=== PATIENT | male | born 1955 | race Caucasian/White ===

== ENCOUNTER → 2023-10-01 18:00 | Outpatient (REF) | payer MEDICARE, BC, SELFPAY ==
--- NOTE | 2023-09-21 08:35 | PN.DIAED02 ---
Referral
DSME Class Series Code: [id number]
Referred For: Diabetes Self-Management Training
PHI Release Authorization Form Signed: Yes
Demographic
(1) Type 2 diabetes mellitus
Status: Acute Code(s): E11.9 - Type 2 diabetes mellitus without complications
Patient's primary language-: Japanese
Education: College degree
Occupation: Professional (financial services consultant)
Hours Worked/Week: 20-40 (35)
- Social
Primary Support Person: Family
Primary Care Takers: Self
Living Arrangements: Family
- Learning Methods
Preferred Method: Lecture/audio, Hands-on demonstration, Video, Group discussion
Barriers to Learning: None
Glycemic Control
- Blood Glucose Monitoring Assessment
Date: 09/20/23
Blood glucose monitoring at home: No (Provided with [employer] Next Gen)
Monitor Brands: [employer] (Next Gen)
Frequency: 2x per day
Time: fasting, after breakfast, after lunch, after dinner
- Hemoglobin A1c
Date: 09/07/23
A1C Percentage (%): 7.3
Medical History of Diabetes
Previous Diabetes Education: No
Previous visit with Dietitian: No
Complications/Comorbidity/Specialist: Hypertension, Other / symptoms (Back issues from laminectomy and fusion)
Measures
- Anthropometrics
Height: 5 ft 7 in
Actual Weight: 217 lb 6 oz
- Blood Pressure / Pulse
Blood pressure: 159/81
- Diabetes Management
Medical Management for Diabetes: Complete physical exam (09/07/23), Dental exam (07/24/23), Dilated eye exam (06/27/23), Pneumonia vaccination (11/14/22), Other (covid-19 vaccine-09/14/23)
Self-Care
- Tobacco Usage
Do you now, or have you ever smoked?: Never smoked
- Alcohol & Drugs Usage
Drinks Alcohol: Yes
Amount/day: Other (1/month)
- Meals & Dining
Meals & Dining: Patient skips meals: No, Food Intolerance / Allergy: No, Cultural / Adventism Dietary Needs: No
Primary Food Steel Floor Pan Placing Supervisor: Self
Primary Court Orderly: Self
Dining Out Frequency: 1-3x per week (1)
- Physical Activity
Physical Limitation: Yes (back pain)
Patient participates in physical Activity: Yes
Activity Types: walking (just started using treadmill)
Duration: 21-30 minutes
Frequency: 3-5x per week (3)
Intensity: Easy
- Patient-Self Assessment
Diabetes Knowledge: Fair
Feelings About Diabetes: Adaptation
General Health: Good
Importance of Health: Extremely
Stress Level: High
Diabetes Interferes With:: Nothing
Depression Survey Score: 0
Care Plan
- Education Needs
Patient Education Needs: Diabetes disease process, Chronic complications, Acute complications, Medication, Monitoring, Physical activity, Psychosocial Adjustment, Nutritional management, Goal setting & problem solving
Recommended Diabetes Training Program based on assessment: Outpatient Diabetes Education Program
- Plan of Care
Plan of Care:
Shane recently diagnosed with T2DM, A1C 7.3%. He does recall his FBS being elevated in the past. He has been unable to reach insurance for a preferred glucometer. Provided with and instructions given on [facility] Next Gen. He is aware to continue
calling insurance to be certain they will pay for test strips and lancets. If the Contour is preferred, he will call his PCP for an RX for supplies, if not preferred, get an RX for that glucometer and supplies. Good return demonstration with result
137 mg/dl. Aware of testing technique, sites and expected results (as described in handout). He has made some dietary changes and started using the treadmill and has lost 9# in approx. 3 weeks. Handout on snack options provided. Goals established
and directions to classroom given. His is planning to attend as support. Shane knows that he will miss Class 3 (10/15/23), date given for make up class in the next session (11/16/23).
--- NOTE | 2023-09-21 08:51 | PN.DIAED04 ---
Education Record
- Education Record
Class Attended: Class 1 (pre registration 09/20/23 for outpt DSME classes starting 10/01/23)
DSME Class Series Code: [id number]
Instructor: Registered Nurse (Azul Licona, RN, BSN, [facility])
Class Curriculum:
Outpatient Diabetes Education Program:
Initial Assessment (45 minutes)
Individualized assessment
Develop personal strategies to promote health and behavior change
Development of diabetes self-management support plan
Class Length (mins): 45
Pre-Program Knowledge: Needs review / Assistance
Pre-Test Score (%): 70
Goals
- Goal 1
Being Active: Exercise more often (Goal is to use treadmill (walk outside in good weather) and add some light weights 3-4 times/week)
Goals To Be Evaluated: Exercise more often
- Goal 2
Healthy Eating: Make better food choices, Reduce portion sizes
Goals To Be Evaluated: Make better food choices. Reduce portion sizes
- Goal 3
Monitoring: Take blood sugar in the prescribed pattern
Goals To Be Evaluated: Test BG-prescribed times
--- NOTE | 2023-10-02 13:35 | PN.DIAED04 ---
Education Record
- Education Record
Class Attended: Class 1
DSME Class Series Code: [id number]
Instructor: Registered Nurse (Azul Licona, RN, BSN, CDE)
Class Length (mins): 120
Post-Class 1 Test Score (%): 100
--- NOTE | 2023-10-02 13:37 | PN.DIAED14 ---
This is to notify you that your patient with diabetes, ISAAK SOTO ( 1955), has enrolled in our diabetes self-management classes that are being held at [facility].
These classes will include an introduction to diabetes, diet, medication, exercise and prevention of complications. At the end of our class series, you will receive a report of your patient's participation and progress for your records.
Please contact me at the Diabetes Center, , if there is any particular information regarding your patient that might be helpful to me.
Sincerely,
--- NOTE | 2023-10-08 14:12 | PN.DIAED06 ---
Meal Plans - Regular
- Meal Plan
Diabetic Meal Plan Name: 1800 calories
Breakfast - Total Carbohydrate (grams): 45
Breakfast - Starch Carbohydrate: 0
Breakfast - Fruit Carbohydrate: 0
Breakfast - Milk Carbohydrate: 0
Breakfast - Nonstarchy Vegetables: Yes
Breakfast - Meat/Protein: 1
Breakfast - Fat: 2
Morning Snack - Total Carbohydrate (grams): 15
Morning Snack - Starch Carbohydrate: 0
Morning Snack - Fruit Carbohydrate: 0
Morning Snack - Milk Carbohydrate: 0
Morning Snack - Nonstarchy Vegetables: Yes
Morning Snack - Meat/Protein: 0.5
Morning Snack - Fat: 0
Lunch - Total Carbohydrate (grams): 45
Lunch - Starch Carbohydrate: 0
Lunch - Fruit Carbohydrate: 0
Lunch - Milk Carbohydrate: 0
Lunch - Nonstarchy Vegetables: Yes
Lunch - Meat/Protein: 3
Lunch - Fat: 1
Afternoon Snack - Total Carbohydrate (grams): 15
Afternoon Snack - Starch Carbohydrate: 0
Afternoon Snack - Fruit Carbohydrate: 0
Afternoon Snack - Milk Carbohydrate: 0
Afternoon Snack - Nonstarchy Vegetables: Yes
Afternoon Snack - Meat/Protein: 0.5
Afternoon Snack - Fat: 0
Dinner - Total Carbohydrate (grams): 45
Dinner - Starch Carbohydrate: 0
Dinner - Fruit Carbohydrate: 0
Dinner - Milk Carbohydrate: 0
Dinner - Nonstarchy Vegetables: Yes
Dinner - Meat/Protein: 3
Dinner - Fat: 2
Evening Snack - Total Carbohydrate (grams): 15
Evening Snack - Starch Carbohydrate: 0
Evening Snack - Fruit Carbohydrate: 0
Evening Snack - Milk Carbohydrate: 0
Evening Snack - Nonstarchy Vegetables: Yes
Evening Snack - Meat/Protein: 0
Evening Snack - Fat: 0
== END ==
LOC: DES 18:00
PROVIDERS: ATTENDING PHYSICIAN Student in an Organized Health Care Education/Training Program
DX: E11.9 Type 2 diabetes mellitus without complications (principal)
CPT/HCPCS: 99078

== ENCOUNTER → 2023-10-08 18:00 | Outpatient (REF) | payer MEDICARE, BC, SELFPAY ==
--- NOTE | 2023-10-09 08:42 | PN.DIAED04 ---
Education Record
- Education Record
Class Attended: Class 2
DSME Class Series Code: [id number]
Instructor: Registered Dietitian (Geri Jimenez, RD, LDN, CDE)
Class Length (mins): 120
== END ==
LOC: DES 18:00
PROVIDERS: ATTENDING PHYSICIAN Student in an Organized Health Care Education/Training Program
DX: E11.9 Type 2 diabetes mellitus without complications (principal)
CPT/HCPCS: 99078

== ENCOUNTER → 2023-10-29 18:00 | Outpatient (REF) | payer MEDICARE, BC, SELFPAY ==
--- NOTE | 2023-10-31 10:57 | PN.DIAED20 ---
This is to notify you that your patient with diabetes, ISAAK SOTO ( 1955), has attended the following Diabetes Self-Management Education Classes.
_X_ Class 1 (120 minutes): Diabetes Overview - monitoring, stress/psychosocial adjustment, support, goal setting
_X_ Class 2 (120 minutes): Meal Planning - serving sizes, menu plans
___ Class 3 (120 minutes): Introduction to Carbohydrate Counting, Analyzing Food Labels
___ Class 4 (120 minutes): Medication, Exercise and Activity
_X_ Class 5 (120 minutes): Sick Day Management, Strategies to Reduce Complications, Problem Solving, Resources
The following behavioral goals were identified:
Exercise more often
Make better food choices
Reduce portion sizes
Test BG-prescribed times
A follow-up call will be made within three to six months to evaluate attainment of these goals and to check post-program Hemoglobin A1c and overall progress. All class participants are encouraged to contact me if I can be any further assistance in
learning how to manage their diabetes.
Sincerely,
--- NOTE | 2023-11-01 12:20 | PN.DIAED04 ---
Education Record
- Education Record
Class Attended: Class 5
DSME Class Series Code: [id number]
Instructor: Registered Nurse (Azul Licona, RN, BSN, [facility])
Class Curriculum:
Outpatient Diabetes Education Program:
Class 5 (120 minutes)
Prevent, detect, and treat acute complications
Prevent, detect, and treat chronic complications through risk reduction
Develop personal strategies to address psychosocial issues and concerns
Development of diabetes self-management support plan
Letter to physician with DSMS plan attached sent
Class Length (mins): 120
Post-Program Knowledge: Demonstrates competency
Post-Test Score (%): 83
Post-Program Assessment
- Post-Program Assessment
Actual Weight: 211 lb
Blood pressure: 186/95 (checks BP daily at home with reading 113/64, 117/62.He will check when he goes home and f/u if needed)
Post-Program Depression Survey Score: 0
Reviewing Previous Goals?: Yes
Pre-Program Depression Survey Score: 0
- Goals 1 Evaluation
Goals To Be Evaluated: Exercise more often
- Goals 2 Evaluation
Goals To Be Evaluated: Make better food choices. Reduce portion sizes
- Goals 3 Evaluation
Goals To Be Evaluated: Test BG-prescribed times
== END ==
LOC: DES 18:00
PROVIDERS: ATTENDING PHYSICIAN Student in an Organized Health Care Education/Training Program
DX: E11.9 Type 2 diabetes mellitus without complications (principal)
CPT/HCPCS: 99078

== ENCOUNTER → 2024-02-15 06:31 | Day surgery (SDC) | payer MEDICARE, BC, SELFPAY | LOC: GI 06:31 | PROVIDERS: ATTENDING PHYSICIAN Internal Medicine Gastroenterology | DX: Z12.11 Encounter for screening for malignant neoplasm of colon (principal); D12.0 Benign neoplasm of cecum; D12.4 Benign neoplasm of descending colon; K57.30 Diverticulosis of large intestine without perforation or abscess without bleeding; K64.8 Other hemorrhoids | CPT/HCPCS: 45385; 88305 ==

== ENCOUNTER → 2024-03-07 08:04 | Outpatient (REF) | payer MEDICARE, BC, SELFPAY | LOC: RCS 08:04 | PROVIDERS: ATTENDING PHYSICIAN Internal Medicine; FAMILY PHYSICIAN Student in an Organized Health Care Education/Training Program | DX: I10 Essential (primary) hypertension (principal) | CPT/HCPCS: 93306 ==

== ENCOUNTER 2024-08-23 10:26 | Emergency (ER) | payer MEDICARE, BC, SELFPAY ==
[2024-08-23 10:40] VITALS: BP 186/90
--- NOTE | 2024-08-23 12:34 | ED.GENMED ---
History of Present Illness
General
Chief Complaint: Musculo-Skeletal Complaint
Source: patient
Exam Limitations: none
Time Seen by Provider: 08/23/24 12:06
Nursing documentation reviewed up to this point in time: agreed with
History of Present Illness
History of Present Illness:
Patient is a 69-year-old male with history hypertension, hyperlipidemia presenting to the emergency department for evaluation of left hip pain for the past 3 months. He initially noticed pain in his left hip after trip to [place] while he was doing a
lot of walking. Pain was initially intermittent although has been relatively constant for the past 2 days. He did 'twist' his left hip while trying to get off the cardia today which she thinks may have prompted the worsening pain. Pain is worse
in the morning. He describes a sharp stabbing pain in his left lateral hip without any radiation into leg low back. Pain is definitely worse with movement. No numbness/tingling in lower extremities. No bowel/bladder incontinence. No fevers or
chills.
Patient does have an appointment scheduled with orthopedics on Sunday although given pain was more severe today he came to the emergency department for evaluation.
Past History
Past History
ED Past Medical History: Cancer (Prostate), HTN, Hypercholesterolemia and Other (quetsionable Pancreatitis)
ED Past Surgical History: Cholecystectomy, Urological (prostatectomy) and Other (hernia)
Social History
Tobacco: Non-smoker
Alcohol: Occasional
Personal:
Living: with family
Employment: Employed
Family History
Family History: Other (Noncontributory)
Review of Systems
Review of Systems
Allergies reviewed?: Yes
All Other Systems: ROS reviewed and negative except as documented in HPI and ROS
Phy Exam
Physical Exam
Physical Exam:
Vitals: Hypertensive, otherwise stable vital signs. Afebrile
General: Patient is well appearing, no acute distress
Skin: Warm and dry, no rashes or lesions
Head: Normocephalic, atraumatic
Throat: Protecting airway
Neck: Normal ROM, no cervical spine tenderness
Cardiac: Regular rate
Pulm: No apparent respiratory distress
Abdomen: Nondistended
Back: No midline spinal tenderness. No tenderness at SI joint. No CVA tenderness. No rash.
Extremities: Tenderness overlying left greater trochanter. Some pain with internal rotation of left hip and abduction. No overlying erythema or warmth of left hip. Full range of motion left knee without pain. LLE neurovascularly intact.
Neuro: Grossly intact
Psychiatric: Normal affect.
Course
Orders/Labs/Results
Orders:
Orders
08/23/24 11:25
CR Hip - LT w/wo Pel 2-3 Vw* Urgent
Comment:
Reason For Exam: pain
Include a pelvis x-ray?: Yes
08/23/24 12:32
Acetaminophen [Tylenol] 650 mg PO NOW STA
Vital Signs
Initial and Last Documented VS:
Initial Vital Signs
Temp Pulse Resp BP Pulse Ox
98.3 F 78 18 186/90 97
08/23/24 10:40 08/23/24 10:40 08/23/24 10:40 08/23/24 10:40 08/23/24 10:40
Last Documented Vital Signs
Temp Pulse Resp BP Pulse Ox
98.6 F 80 18 174/89 96
08/23/24 14:16 08/23/24 14:16 08/23/24 14:16 08/23/24 14:16 08/23/24 14:16
MDM/Problems Addressed
Differential Diagnosis Includes:
Not limited to: Hip abductor muscle strain, hip bursitis, IT band syndrome, hip fracture, etc.
MDM/Problems Addressed:
69-year-old male with gradually worsening left hip pain. No known trauma although recently worsened after twisting his leg getting out of the car. No fevers, chills, or other infectious symptoms. No numbness/tingling in left lower extremity.
Patient hypertensive on arrival, otherwise stable vital signs. Physical exam as above. Patient is minimal tenderness of left hip near left greater trochanter. No overlying erythema or warmth to suggest infectious process. No rashes suggest
zoster. Tenderness noted with range of motion in left hip. No tenderness of back. Low suspicion for acute fracture. Other considerations include bursitis of left hip or muscle strain of left hip abductor. Will check hip x-ray. Tylenol for pain.
Update: X-ray reviewed without any evidence of acute fracture. Suspect likely muscle strain versus bursitis. Do not suspect infectious process. Patient ambulating independently throughout department. He has a follow-up scheduled with orthopedics
on Sunday which recommended he keep. Return precaution discussed. Stable for discharge and outpatient follow-up. Case discussed with attending physician.
Chronic conditions affecting care:
Hypertension
Acute Exacerbation and/or Progression of Chronic Illness:
Acutely hypertensive
*Radiology
Radiology exam reviewed: preliminary read by ED provider (Hip x-ray read by me-no acute fracture of left hip or pelvis) and radiology read reviewed
*Pulse Oximetry
Patient hypoxic: no
*EKG
Interpreted by ED Provider?: NA
*Plumbing Installer Interpretation
Rate: Plumbing Installer- N/A
*Critical Care Note
Total Time (30-74mins, 75-104mins- exclusive of procedures): Not Applicable
ED Attending Note
-
Portions of this chart may have been created with voice recognition software.� Occasional wrong word or��sound alike� substitutions may have occurred due to the inherent limitations of voice recognition software.
Discharge Plan
Departure
Patient Disposition: Home (Routine Discharge)
Date of Disposition: 08/23/24
Time of Disposition: 13:48
Patient with high blood pressure during this ER visit?: Yes
Condition: Good
Covid-19: Not Applicable
Discharge Problem:
Hip pain, left
Instructions: Hip Pain ED, BLOOD PRESSURE
Prescriptions:
No Action
cetirizine [Zyrtec] 10 MG tablet
10 mg PO PRN PRN (Reason: allergy)
Patient Comments:
daily in the pm
Metamucil Fiber Singles 1 PACKET powder in packet
1 tsp PO HS Qty: 0
fluticasone propionate 1 SPRAY spray,suspension
1 spray intranasal DAILY
atorvastatin 20 MG tablet
20 mg PO HS
ascorbic acid (vitamin C) [Vitamin C] 500 MG tablet
1,000 mg PO DAILY
multivitamin with folic acid [Tab-A-Nevaeh] 1 TABLET tablet
1 tab PO DAILY
valsartan 160 mg Tablet
160 mg PO HS
coenzyme Q10 [CoQ-10] 100 mg Capsule
200 mg PO HS
omeprazole 20 mg Tablet,Delayed Release (Dr/Ec)
20 mg PO DAILY
turmeric root extract 500 mg Capsule
500 mg PO DAILY
Probiotic Complex 25 billion cell -100 mg Capsule
1 cap PO DAILY
acetaminophen [Tylenol Extra Strength] 500 mg tablet
1,000 mg PO Q6HPRN PRN (Reason: mild pain) Qty: 1 0RF
ibuprofen 200 mg tablet
400 - 600 mg PO Q6HPRN PRN (Reason: moderate pain) Qty: 1 0RF
polyethylene glycol 3350 [Miralax] 17 gram/dose powder
4 g PO DAILY PRN (Reason: Constipation) Qty: 119 0RF
Rx Instructions:
start a laxative such as MIRALAX on day 2 after surgery if no bowel movement yet as long as no nausea/vomiting and passing gas
oxycodone 5 mg tablet
5 mg PO Q4HPRN PRN (Reason: breakthrough/severe pain) Qty: 14 0RF
Referrals:
Shanell Villa MD [Family Provider] -
Activity Restrictions/Additional Instructions:
RETURN TO THE EMERGENCY DEPARTMENT WITH ANY SIGNS OF INFECTION INCLUDING FEVER, CHILLS, SIGNIFICANT FATIGUE, INTRACTABLE PAIN, NUMBNESS/TINGLING IN LEFT LEG, WORSENING IN CURRENT SYMPTOMS, OR ANY OTHER CONCERNS
-As discussed�your x-ray of 20 emergency department showed no evidence of acute fracture. Your symptoms may be related to a muscular strain or bursitis.
-You should continue to take/or Tylenol as needed for discomfort.
-It is important you follow-up with orthopedics as scheduled on Sunday.
Monitor your symptoms closely return to the emergency department with any acute worsening/new symptoms or any other concerns
Interventions
Interventions:
*Risk Screen - Suicide Last Done: 08/23/24 10:40
*General Assessment Last Done: 08/23/24 10:40
*Neglect/Abuse Screening Last Done: 08/23/24 10:40
ED- Fall Risk Assessment Last Done: 08/23/24 13:08
*ED COVID-19 Vaccine History Last Done: 08/23/24 13:08
*Nursing Disposition Last Done: 08/23/24 14:16
ED-Musculoskeletal Assessment Last Done: 08/23/24 13:08
Discharge Date and Time
Discharge Date/Time: 08/23/24 14:10
Print Language: YORUBA
[2024-08-23 13:08] VITALS: BMI 35.1
[2024-08-23] MEDS: TYLENOL 650 MG PO (13:11)
--- NOTE | 2024-08-23 14:15 | EDRN ---
Reviewed discharge instructions with patient. Verbalized understanding. Ambulated with steady gait to the lobby.
[2024-08-23 14:16] VITALS: BP 174/89
== END 2024-08-23 14:10 | disposition home or self-care (01) ==
LOC: EMR 10:26
PROVIDERS: EMERGENCY PHYSICIAN Student in an Organized Health Care Education/Training Program; FAMILY PHYSICIAN Student in an Organized Health Care Education/Training Program
DX: M25.552 Pain in left hip (principal); X50.1XXA Overexertion from prolonged static or awkward postures, initial encounter; I10 Essential (primary) hypertension; E78.00 Pure hypercholesterolemia, unspecified; Z85.46 Personal history of malignant neoplasm of prostate; Z90.79 Acquired absence of other genital organ(s); Z90.49 Acquired absence of other specified parts of digestive tract; Z91.040 Latex allergy status; Z88.2 Allergy status to sulfonamides; Z91.048 Other nonmedicinal substance allergy status
CPT/HCPCS: 99283; 73502